=== PATIENT | female | born 1965 | race African-American/Black ===

== ENCOUNTER 2016-10-10 11:00 | Emergency (ER) | payer BC ==
[~2016-10-10 11:00] MED LIST: ALBUTEROL17 GM INH; AMOXICILLIN875 MG PO; ANTIDEPRESSANT; AUGMENTIN PO; BACTRIM DS TABL1 TA1 PO; BENADRYL; BENICAR HCT 20-1 TA1 PO; BLOOD PRESSURE MED; CITALOPRAM HBR10 MG PO; COLCHICINE PO; COLCHINE PO; EC-NAPROSYN500 MG PO; FAMOTIDINE PO; IBUPROFEN PO; IBUPROFEN800 MG PO; IMODIUM2 MG PO; K-DUR20 ME1 PO; LASIX20 MG PO; LISINOPRIL; LORATADINE PO; MEDROL DOSEPAK4 MG PO; MIRAPEX PO; MOTRIN400 M1; NAPROSYN500 MG PO; NAPROXEN PO; PEN-VEE K PO; PHENERGAN25 M1 PO; PRAVACHOL; PRAVACHOL20 MG PO; PREDNISONE50 MG PO; TUSSIONEX PENN473 ML PO; TYLENOL #3 PO; ULTRAM PO; VICODIN 5/500 T1 TAB PO; ZESTORETIC 20/21 TAB; ZESTORETIC 20/21 TAB PO; ZITHROMAX PO; ZOFRAN ODT4 MG PO
== END 2016-10-10 12:49 | disposition home or self-care (01) ==
LOC: SED 11:00
DX: J02.9 Acute pharyngitis, unspecified (principal); I10 Essential (primary) hypertension; Z79.899 Other long term (current) drug therapy
CPT/HCPCS: 87651; 99283